=== PATIENT | female | born 1970 ===

== ENCOUNTER 2016-05-23 14:47 | Emergency (ER) | payer MEDICAID ==
[~2016-05-23 14:47] MED LIST: ALEVE220 MG; EXCEDRIN MIGRAI1 TAB; HYDROCODONE/A1 UDTA; MAXALT5 MG; STRATTERA25 MG; TYLENOL500 MG
[2016-05-23] MEDS ORDERED: EXCEDRIN MIGRA1 EAC3 PO (15:13)
[2016-05-23] MEDS ORDERED: COLACE100 M1 PO (15:13)
[2016-05-23] MEDS ORDERED: CLORAZEPATE D3.75 M1 PO (15:13)
[2016-05-23] MEDS ORDERED: ASPIRIN EC81 MG PO (15:13)
[2016-05-23] MEDS ORDERED: CYMBALTA60 M1 PO (15:14)
[2016-05-23] MEDS ORDERED: KLOR-CON 1010 ME1 PO (15:14)
[2016-05-23] MEDS ORDERED: LASIX20 M1 PO (15:14)
[2016-05-23] MEDS ORDERED: LAMICTAL25 M2 PO (15:14)
[2016-05-23] MEDS ORDERED: LIDOCARE1 EACH TD (15:15)
[2016-05-23] MEDS ORDERED: ZOCOR20 M1 PO (15:16)
[2016-05-23] MEDS ORDERED: NAPROSYN500 M1 PO (15:16)
[2016-05-23] MEDS ORDERED: PROPRANOLOL HCL10 M1 PO (15:16)
[2016-05-23] MEDS ORDERED: OMEPRAZOLE20 M3 PO (15:16)
[2016-05-23] MEDS ORDERED: MINIPRESS1 M1 PO (15:16)
[2016-05-23] MEDS ORDERED: TOPAMAX100 M2 PO (15:17)
[2016-05-23] MEDS ORDERED: TRAZODONE HCL100 M1 PO (15:17)
[2016-05-23] MEDS ORDERED: VALACYCLOVIR1000 M1 PO (15:17)
[2016-05-23] MEDS ORDERED: AMBIEN5 M1 PO (15:18)
[2016-05-23] MEDS ORDERED: EFFEXOR XR75 M1 PO ×2 (15:18→16:04)
[2016-05-23] MEDS ORDERED: EFFEXOR XR150 M1 PO (16:04)
[2016-05-23] MEDS ORDERED: ZYRTEC10 M7 PO (16:06)
[2016-05-23] MEDS ORDERED: LAMICTAL100 M2 PO (16:09)
== END 2016-05-23 16:56 ==
LOC: EDMED 14:47
DX: R51 Headache (principal)
CPT/HCPCS: J1200; J1885; J2060; J2405; J7030